=== PATIENT | female | born 1945 | race Caucasian/White ===

== ENCOUNTER 2021-02-01 08:21 | Outpatient (CLI) | payer MEDICARE | END 2021-02-01 08:22 | disposition home or self-care (01) | LOC: CSHULT 08:21 | PROVIDERS: ATTEND Internal Medicine | DX: Z13.6 Encounter for screening for cardiovascular disorders (principal); Z12.2 Encounter for screening for malignant neoplasm of respiratory organs; Z87.891 Personal history of nicotine dependence | CPT/HCPCS: 71271; 76706 ==

== ENCOUNTER 2021-09-20 23:44 | Emergency (ER) | payer MEDICARE, OTHER ==
[2021-09-21] MEDS ORDERED: Ketorolac Tromethamine 30 MG/ML VIAL ONE (01:00)
== END 2021-09-21 01:13 | disposition home or self-care (01) ==
LOC: CSHERS 23:44
DX: M54.42 Lumbago with sciatica, left side (principal); Z87.891 Personal history of nicotine dependence
CPT/HCPCS: 96372; 99283; J1885

== ENCOUNTER 2021-10-03 10:46 | Outpatient (CLI) | payer OTHER | END 2021-10-03 10:47 | disposition home or self-care (01) | LOC: CSHMRI 10:46 | PROVIDERS: ATTEND Internal Medicine | DX: M54.32 Sciatica, left side (principal) | CPT/HCPCS: 72148 ==

== ENCOUNTER 2021-10-06 09:44 | Outpatient (CLI) | payer OTHER | END 2021-10-06 09:45 | disposition home or self-care (01) | LOC: CSHRAD 09:44 | PROVIDERS: ATTEND Family Medicine | DX: M79.605 Pain in left leg (principal); M25.552 Pain in left hip; M25.562 Pain in left knee; M16.12 Unilateral primary osteoarthritis, left hip ==